=== PATIENT | female | born 1940 | race Caucasian/White ===

== ENCOUNTER 2016-10-20 10:30 | Emergency (ER) | payer OTHER ==
[2016-10-20 11:02] VITALS: TEMP 98.4; O2SAT 97
--- NOTE | 2016-10-20 12:06 | EDPHY ---
H & P Stated Complaint: right behind knee pain and down into calf and foot after stepping. Time Seen by Provider: 10/20/16 11:08 HPI/ROS: Chief Complaint: Right leg pain HPI: 76-year-old woman who is been having right calf pain and swelling for about the last week. She was traveling in [place] doing a lot a walking. Patient states that her catheterization felt tense. She is also having some aching pain in the back of her calf going down to the back of her knee. This morning she got up and took a step and felt a pop in the medial aspect of her knee. She has had significant pain since that time. Did not fall. No prior injuries. The no chest pain or shortness of breath. No palpitations. ROS: 10 point Review of Systems is negative except as noted in the HPI. PMH: None Social History: No smoking, no alcohol, no recreational drug use Family History: non-contributory Physical Exam: General: Awake, alert, no acute distress Right leg: Hip is nontender full range of motion without pain. Knee: She has no acute medial or lateral bony tenderness. The patella is not tender. She has full flexion past 90 and his complete able to completely straighten. She does have some pain with loading of the menisci. Calf: Right calf is 2 cm larger than her left calf. Is soft there is no tenderness. There is no erythema. Ankle: Full range of motion without pain, no tenderness. Foot: No tenderness. Cap refill less than 2 seconds. 2+ PT and DP pulses. Sensations intact in all dermatomes. Skin: No rash - Personal History Current Tetanus/Diphtheria Vaccine: Yes - Medical/Surgical History Hx Asthma: No Hx Chronic Respiratory Disease: No Hx Diabetes: No Hx Cardiac Disease: No Hx Renal Disease: No Hx Cirrhosis: No Hx Alcoholism: No Hx HIV/AIDS: No Hx Splenectomy or Spleen Trauma: No Other PMH: Hypothyroid. Hysterectomy. Migraines - Social History Smoking Status: Never smoked Constitutional: Initial Vital Signs Temperature (C) 36.9 C 10/20/16 10:54 Heart Rate 63 10/20/16 10:54 Respiratory Rate 16 10/20/16 10:54 Blood Pressure 161/82 H 10/20/16 10:54 O2 Sat (%) 97 10/20/16 10:54 O2 Delivery Mode Room Air Allergies/Adverse Reactions: amoxicillin Allergy (Verified 10/20/16 11:03) Home Medications: Medication Instructions Recorded Levothyroxine 10/20/16 Maxalt 10/20/16 Medical Decision Making - Diagnostics Imaging Results: Imaging Impressions Extremity Venous Study 10/20/16 11:15 Impression: No deep venous thrombosis right leg. Findings and recommendations discussed with Emergency Department physician, Han Germain MD at 12:34 hour, 10/20/2016. Final report concurs with initial preliminary interpretation. Imaging: Discussed imaging studies w/ banquet server on call Radiologist ED Course/Re-evaluation: Ultrasound is negative for DVT. Patient has full range of motion no reproducible bony tenderness on examination. She has excellent perfusion. Pain symptoms are consistent with a ligament or meniscal injury. Will place her in a knee immobilizer and crutches, referral for Orthopedics for next week. Departure - Departure Disposition: Home, Routine, Self-Care Clinical Impression: Knee sprain Condition: Good Instructions: Knee Sprain (ED), Knee Immobilizer (ED), Crutch Instructions (ED) Additional Instructions: You may alternate ibuprofen with acetaminophen as needed for pain. Apply ice for 15 minutes for every hour while awake. Follow up with Orthopedics in 3-4 days. Referrals: Joby Varghese MD [Primary Care Provider] - As per Instructions Maggie Brasher MD [Medical Doctor] - As per Instructions
[2016-10-20 12:37] VITALS: BP 163/72; PULSE 56
[2016-10-20 12:42] VITALS: RESP 16
== END 2016-10-20 12:42 | disposition home or self-care (01) ==
LOC: CED 10:30
DX: S83.91XA Sprain of unspecified site of right knee, initial encounter (principal); X58.XXXA Exposure to other specified factors, initial encounter
CPT/HCPCS: 93971; 99284; L1830

== ENCOUNTER → 2016-10-30 | Outpatient (CLI) | payer OTHER | LOC: CIMAGING 10:45 | DX: Z12.31 Encounter for screening mammogram for malignant neoplasm of breast (principal) | CPT/HCPCS: G0202 ==

== ENCOUNTER → 2017-11-28 | Outpatient (CLI) | payer OTHER | LOC: CIMAGING 09:55 | PROVIDERS: ATTEND Internal Medicine | DX: Z12.31 Encounter for screening mammogram for malignant neoplasm of breast (principal) ==

== ENCOUNTER → 2017-12-07 | Outpatient (CLI) | payer OTHER | LOC: CIMAGING 12:38 | PROVIDERS: ATTEND Internal Medicine | DX: I65.22 Occlusion and stenosis of left carotid artery (principal) | CPT/HCPCS: 93880-PO ==

== ENCOUNTER → 2018-12-03 | Outpatient (CLI) | payer OTHER | LOC: CIMAGING 09:58 ==